=== PATIENT | female | born 1940 | race Caucasian/White ===

== ENCOUNTER → 2017-05-20 | Outpatient (CLI) | payer MEDICARE, BC | LOC: BICRAD 13:40 | PROVIDERS: ATTEND Internal Medicine | DX: R06.09 Other forms of dyspnea (principal) | CPT/HCPCS: 71046 ==

== ENCOUNTER 2017-10-14 12:08 | Outpatient (CLI) | payer MEDICARE, BC ==
--- NOTE | 2017-10-14 14:09 | RAD ---
THORACIC SPINE 2 VIWS STANDARD: HISTORY: Lumbar post laminectomy syndrome. COMPARISON: None. FINDINGS: Dorsal column stimulator is in place. Mild spondylitic changes of the thoracic spine. No acute frac ture or malalignment. Heart size is normal. Dual-lead pacer is present. IMPRESSION: Moderate degenerative changes of the thoracic spine. POS: LESLIE
== END 2017-10-14 12:09 | disposition home or self-care (01) ==
LOC: RAD 12:08
PROVIDERS: ATTEND Nurse Practitioner Family
DX: M96.1 Postlaminectomy syndrome, not elsewhere classified (principal); M47.894 Other spondylosis, thoracic region
CPT/HCPCS: 72072

== ENCOUNTER 2018-02-07 14:35 | Outpatient (CLI) | payer MEDICARE, BC ==
--- NOTE | 2018-02-07 16:43 | BD ---
BONE DENSITOMETRY USING DEXA: Date: 02/07/18 HISTORY: Postmenopausal screening for osteoporosis. FINDINGS: RIGHT HIP: Femoral Neck: 0.751 T-Score: -0.9 Z-Score: 1.4 Total Femur: 0.906 T-Score: -0.3 Z-Score: 1.7 LEFT HIP: Femoral Neck: 0.731 T-Score: -1.1 Z-Score: 1.2 Total Femur: 0.869 T-Score: -0.6 Z-Score: 1.4 There has been interval improvement of 7.4% in the bone mineral density of the right proximal femur a nd an improvement of 6.2% in the bone mineral density of the left proximal femur since 12/27/15. The 10 year fracture risk for a major osteoporotic fracture is 28% and for a hip fracture is 13%. IMPRESSION: Osteopenia. POS: LESLIE
== END 2018-02-07 14:36 | disposition home or self-care (01) ==
LOC: BICMAMMO 14:35
DX: Z12.31 Encounter for screening mammogram for malignant neoplasm of breast (principal); Z13.820 Encounter for screening for osteoporosis; Z78.0 Asymptomatic menopausal state; M85.89 Other specified disorders of bone density and structure, multiple sites; Z80.3 Family history of malignant neoplasm of breast
CPT/HCPCS: 77063; 77067; 77080

== ENCOUNTER 2018-08-08 06:50 | Outpatient (CLI) | payer MEDICARE, BC ==
[2018-08-07 16:00] VITALS: BMI 22.6
--- NOTE | 2018-08-08 09:19 | RAD ---
FMyelogram lumbar: 08/08/2018 HISTORY: 78-year-old female with low back pain, bilateral lumbar radiculopathy, and "neurogenic claudication" TECHNIQUE: Signed informed consent obtained. Patient placed prone on fluoroscopy table. L5-S1 level selected. Ov erlying skin prepared and draped in usual sterile fashion. 25-gauge needle used to prior buffered lid ocaine. 22-gauge spinal needle advanced and incrementally under brief, intermittent fluoroscopy. Upon return of clear CSF, a total of 10 mL of Isovue-M 200 was injected intrathecally. Needle was removed . Patient tolerated the procedure well. No complications. Patient was taken to CT. IMPRESSION: Successful lumbar myelogram. See separate report of CT lumbar myelogram
--- NOTE | 2018-08-08 09:45 | RAD ---
LUMBAR SPINE SERIES 3 VIEWS WITH FLEXION AND EXTENSION: Date: 08/08/18 HISTORY: Spinal stenosis with neurogenic claudication. FINDINGS: Bilateral pedicle screws at seen at L3, L4, and L5. Also, I-bar placement across SI joints is noted o n this lateral view. Markers of a disc implant are within the confines of the disc level at L4-5. The re is a spondylolisthesis of L4 on L5, 7-8 mm, which does not definitely change on flexion, but seems to slightly reduce in extension. IMPRESSION: Postoperative changes of the spine. Spondylolisthesis appears to reduce slightly in extension at the L4-5 level. POS: LESLIE
--- NOTE | 2018-08-08 10:25 | CT ---
FCT lumbar spine with contrast (CT lumbar myelogram) 08/08/2018 HISTORY: 78-year-old female with lumbar spinal stenosis and neurogenic claudication. COMPARISON: Noncontrast CT of 06/12/[address] lumbar myelogram of 05/04/2015. FINDINGS: There are 5 lumbar type vertebrae. Vertebral body heights are maintained. Conus medullaris terminates at L2. There is no significant central spinal canal stenosis at any level. There is mild left neural foraminal stenosis at L3-4 and L4-5 and mild right neural foraminal stenosis at L4-5. There is no hi gh-grade neural foraminal stenosis at any level. The cauda equina has a fairly symmetrical distributi on throughout the thecal sac. At T11-12, there is moderate to severe disc space narrowing with endplate sclerosis and mild vacuum d isc phenomenon. At L4-5 there is a grade 1 anterolisthesis of L4 on L5. Metallic markers for interbody graft at L4-5 with moderate disc space narrowing. Ankylosis of bilateral L4-5 facet joints. Moderate bilateral facet DJD at L5-S1 with vacuum joint phenomenon, right greater than left. The rest of the disc spaces are maintained. Bilateral pedicle screws at L3, L4, and L5, with no evidence of hardware loosening or malpositioning. iFuse screws across the bilateral SI joints. Moderate degenerative changes of bilateral SI joints. Dorsal column spinal cord stimulator enters the spinal canal at approximately T11-12, and ascends the posterior epidural space. There has been no major interval change. IMPRESSION: 1. Posterior lumbar interbody fusion treatment of grade 1 spondylolisthesis at L4-5. 2. Bilateral pedicle screws at L3, L4, and L5. 3. Status post arthrodesis of bilateral sacroiliac joints with screws. 4. Spinal cord dorsal column stimulator. 5. 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 No significant central spinal canal stenosis, significant neural foraminal stenosis, or nerve root compression, identified at any level. 7. No interval change since 06/12/2016 and 05/04/2015.
[2018-08-08] MEDS ORDERED: Iopamidol-M 200 41% 20 ML VIAL ONE (15:13)
== END 2018-08-08 09:35 | disposition home or self-care (01) ==
LOC: RAD 06:50 → EDSTATUS 08:00 → RAD 09:35
PROVIDERS: ATTEND Anesthesiology Pain Medicine
DX: M48.062 Spinal stenosis, lumbar region with neurogenic claudication (principal); M47.817 Spondylosis without myelopathy or radiculopathy, lumbosacral region; M43.16 Spondylolisthesis, lumbar region; Z98.1 Arthrodesis status
CPT/HCPCS: 62304; 72100; 72132; Q9966

== ENCOUNTER 2019-03-03 15:02 | Outpatient (CLI) | payer MEDICARE, BC ==
--- NOTE | 2019-03-03 16:12 | MMO ---
Bilateral MAMMO Bilat Screen [facility]. CLINICAL HISTORY: Patient is 78 years old and is seen for screening. The patient has the following family history of breast cancer: maternal aunt, at age 58, malignant (generic); mother, at age 85, malignant (generic); maternal aunt, at age 60, malignant (generic); maternal aunt, at age 70, malignant (generic) and paternal grandmother, at age 80, malignant (generic). The patient has no personal history of cancer. The patient has a history of right needle biopsy in 2014 - benign and left Excisional Biopsy in 1999 - benign. VIEWS: The views performed were: bilateral craniocaudal with tomosynthesis and bilateral mediolateral oblique with tomosynthesis. FILMS COMPARED: The present examination has been compared to prior imaging studies performed at [facility] on 11/29/2014, 12/27/2015, 02/06/2017 and 02/07/2018. This study has been interpreted with the assistance of computer-aided detection. MAMMOGRAM FINDINGS: There are scattered fibroglandular densities. There is a stable round mass seen in the right breast. There are no suspicious masses, calcifications or areas of architectural distortion. There are no suspicious masses, suspicious calcifications, or new areas of architectural distortion. IMPRESSION: THERE IS NO MAMMOGRAPHIC EVIDENCE OF MALIGNANCY. A ROUTINE FOLLOW-UP MAMMOGRAM IN 1 YEAR IS RECOMMENDED. THE RESULTS OF THIS EXAM WERE SENT TO THE PATIENT. ACR BI-RADS Category 2 - Benign finding MAMMOGRAPHY NOTE: 1. A negative mammogram report should not delay a biopsy if a dominant of clinically suspicious mass is present. 2. Approximately 10% to 15% of breast cancers are not detected by mammography. 3. Adenosis and dense breasts may obscure an underlying neoplasm. Reported by: EMILY ROSS MD Electonically Signed: [id number]
--- NOTE | 2019-03-03 16:50 | BD ---
DEXA BONE DENSITY: HISTORY: An 78-year-old female. Postmenopausal. Screening study. FINDINGS: BMD (g/cm2) T-SCORE Z-SCORE RIGHT FEMORAL NECK 0.740 -1.0 1.3 TOTAL 0.917 -0.2 1.9 LEFT FEMORAL NECK 0.696 -1.4 1.0 TOTAL 0.872 -0.6 IMPRESSION: 1. Right femoral neck WHO classification normal. Ten year fracture risk for major osteoporotic fractu re is 17% and hip fracture is 3.1%. 2. Left hip WHO classification osteopenia. Ten year fracture risk for major osteoporotic fracture 19% and hip fracture 4.2%. POS: OFF
== END 2019-03-03 15:03 | disposition home or self-care (01) ==
LOC: BICMAMMO 15:02
PROVIDERS: ATTEND Obstetrics & Gynecology
DX: Z12.31 Encounter for screening mammogram for malignant neoplasm of breast (principal); Z78.0 Asymptomatic menopausal state; M85.88 Other specified disorders of bone density and structure, other site
CPT/HCPCS: 77063; 77067; 77080

== ENCOUNTER 2019-06-16 05:31 | Day surgery (SDC) | payer MEDICARE, BC ==
[2019-06-15 14:37] VITALS: BMI 22.8
[2019-06-16] MEDS ORDERED: EPINEPHrine 0.3 MG in Ophthalmic Irrigation Solution 500 ML IRR SCH (06:00)
[2019-06-16] MEDS ORDERED: Phenylephrine 2.5% Ophth Soln 5 ML BOT ONE (06:02)
[2019-06-16] MEDS ORDERED: Cyclopentolate 1% Opth Drop 2 ML BOT ONE (06:02)
[2019-06-16] MEDS ORDERED: PROPOFOL 20 ML ONE (06:27)
[2019-06-16] MEDS ORDERED: Midazolam HCl 2 mg/2 ml Vial ONE (06:52)
[2019-06-16] MEDS ORDERED: Fentanyl 100 MCG/2 ML VIAL ONE (06:52)
--- NOTE | 2019-06-16 08:32 | OP ---
DATE OF PROCEDURE: 06/16/2019 PRINCIPAL PREOPERATIVE DIAGNOSES: 1. Epiretinal membrane, left eye. 2. Vitreous opacities, left eye. POSTOPERATIVE DIAGNOSES: 1. Epiretinal membrane, left eye. 2. Vitreous opacities, left eye. NAME OF PROCEDURE PERFORMED: 1. 25-gauge pars plana vitrectomy, left eye. 2. Epiretinal membrane/internal limiting membrane removal, left eye. ESTIMATED BLOOD LOSS: None. SPECIMENS REMOVED: None. COMPLICATIONS: None. ANESTHESIA: MAC with retrobulbar block. SUMMARY OF THE OPERATION: The patient was identified in the preoperative holding area, where the correct eye being the left eye was marked for surgery. The patient was taken to the operating room, where MAC anesthesia was induced. A retrobulbar block was administered to the left eye. The block consisted of 1:1 ratio of 4% lidocaine and 0.75% Marcaine. A total of 5 mL was administered. The left eye was then prepped and draped in the usual sterile ophthalmic fashion for surgery. A wire-clip lid speculum placed. A standard 25-gauge pars plana vitrectomy platform was fashioned with trocars placed approximately 3.5 mm from the limbus. The infusion was noted to be within the vitreous cavity prior to being turned on to an infusion pressure of 30 mmHg. The light pipe and microvitrector were introduced in the eye under visualization of the BIOM viewing system. A significant amount of vitreous opacities identified. A careful core vitrectomy was performed followed by peripheral shave vitrectomy. Following completion of careful vitrectomy, the ICG dye was used to stain the internal limiting membrane. Using the Jose Manuel ILM forceps, the epiretinal membrane/internal limiting membrane complex removal was performed in a circumferential fashion about the fovea. The peel extended approximately 2 disk diameters in radius circumferentially. Following completion of peeling, the microvitrector was reintroduced in the eye to remove any residual vitreous debris. A 360-degree superior scleral depressed exam of the periphery revealed no defects. The cannulas were sequentially removed and all sclerotomies were noted to be watertight. Subconjunctival Ancef and Kenalog were injected. The wire-clip lid speculum was removed followed by application of Tobradex ophthalmic ointment and a light patch and shield. The patient tolerated the procedure well and was taken to the outpatient recovery area in good condition. Job ID: [id number]
[2019-06-16] MEDS ORDERED: Bupivacaine PF 0.75% SDV 10 ML ONE (12:58)
[2019-06-16] MEDS ORDERED: Lidocaine 4% PF 5 ML AMP ONE (12:58)
[2019-06-16] MEDS ORDERED: Maxitrol 0.1% Opth Oint 3.5 GM TUBE ONE (12:58)
[2019-06-16] MEDS ORDERED: Lidocaine 1% PF 5 ML VIAL ONE (12:58)
[2019-06-16] MEDS ORDERED: Triamcinolone 40 MG/ML VIAL ONE (12:58)
[2019-06-16] MEDS ORDERED: CEFAZOLIN 1 GM VIAL ONE (12:58)
[2019-06-16] MEDS ORDERED: Indocyanine Green 25 MG/10 ML VIAL ONE (12:58)
== END 2019-06-16 08:41 | disposition home or self-care (01) ==
LOC: SDC 05:31
PROVIDERS: ATTEND Ophthalmology Retina Specialist
PROC: 08T53ZZ Resection of Left Vitreous, Percutaneous Approach (ICD-10-PCS; principal; 2019-06-16)
PROC: 08NF3ZZ Release Left Retina, Percutaneous Approach (ICD-10-PCS; 2019-06-16)
DX: H35.372 Puckering of macula, left eye (principal); H43.392 Other vitreous opacities, left eye; Z79.82 Long term (current) use of aspirin; Z79.899 Other long term (current) drug therapy; Z91.040 Latex allergy status
CPT/HCPCS: J0171; J0690; J2001; J2250; J2704; J3010; J3301; J3490

== ENCOUNTER 2020-08-29 13:54 | Outpatient (CLI) | payer MEDICARE, BC | END 2020-08-29 13:55 | disposition home or self-care (01) | LOC: BICMAMMO 13:54 | PROVIDERS: ATTEND Internal Medicine | DX: Z12.31 Encounter for screening mammogram for malignant neoplasm of breast (principal); Z80.3 Family history of malignant neoplasm of breast; Z91.89 Other specified personal risk factors, not elsewhere classified | CPT/HCPCS: 77063; 77067 ==

== ENCOUNTER 2020-12-01 10:47 | Inpatient (IN) | payer MEDICARE, BC ==
[~2020-12-01 10:47] MED LIST: Iopamidol-370 76% 500 ML 1 ML ONE
[2020-12-01 11:34] LABS: Hemoglobin 13.2 g/dL (12.0-16.0); Mean Corpuscular HGB CONC 33.4 g/dL (32.0-36.0); Mean Corpuscular Hemoglobin 32.4 pg (27.0-31.0); Mean Platelet Volume 8.8 fL (7.4-10.4); Platelet Count 330 thou/uL (130-400); RBC Distribution Width 12.7 % (11.5-14.5); Red Blood Cell (RBC) Count 4.08 mill/uL (4.20-5.40); White Blood Cell (WBC) Count 30.3 thou/uL (4.8-10.8)
[2020-12-01 11:53] LABS: ALT (SGPT) 30 U/L (8-55); AST (SGOT) 43 U/L (5-34); Albumin 3.3 g/dL (3.4-4.8); Alkaline Phosphatase 158 U/L (40-110); Anion Gap 13 mmol/L (10-20); BUN (Urea Nitrogen) 15 mg/dL (9.8-20.1); Bilirubin, Total 0.4 mg/dL (0.2-1.2); Calc. Creatinine Clearance 0 mL/min (70-130); Calcium 8.7 mg/dL (7.8-10.44); Carbon Dioxide 28 mmol/L (23-31); Chloride 102 mmol/L (98-107); Glucose 83 mg/dL (83-110); Potassium 3.5 mmol/L (3.5-5.1); Protein, Total 6.3 g/dL (5.8-8.1); Sodium 139 mmol/L (136-145)
[2020-12-01 12:01] LABS: Band 1 % (5-11); Eosinophils 80 % (0-10); Lymphocytes 8 % (21-51); MDiff Complete? YES; Monocytes 1 % (0-10); Neutrophil 7 % (42-75); Platelet Morphology Comment Appears Adequate; RBC Morphology Normal; Reactive Lymphocytes 1 % (0-10)
[2020-12-01] MEDS ORDERED: Cefepime 2 GM VIAL ONE (12:33)
[2020-12-01 14:23] LABS: Bacteria/HPF None Seen HPF (None Seen); Bilirubin Negative (Negative); Blood, Urine Trace (Negative); Clarity Clear (Clear); Glucose, Urine (Dipstick) Normal (Negative); Ketone, Urine Negative (Negative); Leukocyte Negative Leu/uL (Negative); Nitrite Negative (Negative); Protein, Urine (Dipstick) Negative (Neg-Trace); RBC/HPF 0-3 HPF (0-3); Specific Gravity, Urine 1.027 (1.002-1.036); Urobilinogen Normal mg/dL (Less than 2); WBC/HPF 0-3 HPF (0-3)
[2020-12-01] MEDS ORDERED: Senokot S 8.6-50 MG TAB PO PRN (15:23)
[2020-12-01] MEDS ORDERED: Cepastat Lozenges 1 LOZ PO PRN (15:23)
[2020-12-01] MEDS ORDERED: Ondansetron ODT 4 MG TAB PO PRN (15:23)
[2020-12-01] MEDS ORDERED: Benzonatate 100 MG CAP PO PRN (15:23)
[2020-12-01] MEDS ORDERED: Guaifenesin DM 100-10/5 ML UDCUP PO PRN (15:23)
[2020-12-01] MEDS ORDERED: Loratadine 10 MG TAB PO PRN (15:23)
[2020-12-01] MEDS ORDERED: Hydrocerin (Eucerin) Cream 120 gm Jar TOP PRN (15:23)
[2020-12-01] MEDS ORDERED: Artificial Tear Sol 15 ML BOT EA EYE PRN (15:23)
[2020-12-01] MEDS ORDERED: Loperamide HCl 2 MG CAP PO PRN (15:23)
[2020-12-01] MEDS ORDERED: Zolpidem Tartrate 5 MG TAB PO PRN (15:23)
[2020-12-01] MEDS ORDERED: Calcium Carbonate 500 MG ChewTAB PO PRN (15:23)
[2020-12-01] MEDS ORDERED: Ondansetron PF 4 MG/2 ML Vial IVP PRN (15:23)
[2020-12-01] MEDS ORDERED: Bisacodyl 10 MG SUPP PR PRN (15:23)
[2020-12-01] MEDS ORDERED: Sodium Chloride 0.65% Nasal 44 ML BOT EA NARE PRN (15:23)
[2020-12-01] MEDS ORDERED: hydrALAZINE 20 MG/ML VIAL SLOW IVP PRN (15:23)
[2020-12-01] MEDS ORDERED: Acetaminophen 325 MG TAB PO PRN (15:23)
[2020-12-01] MEDS ORDERED: Vancomycin 1 GM/200 ML BAG ONE (15:26)
[2020-12-01] MEDS: HYDROcodone/Acetaminophen 5/325 mg Tablet PO PRN (16:48)
[2020-12-01 17:38] VITALS: BMI 22.3
[2020-12-01] MEDS ORDERED: traMADol HCl 50 MG TAB PO PRN (19:36)
[2020-12-01] MEDS: CEFEPIME HCL IN DEXTROSE 5 % 1 GM in Premix Bag 1 BAG IVPB SCH (20:08)
[2020-12-01 21:00] LABS: Legionella Urinary Ag Negative (Negative); Strep pneumo Urine Ag NEGATIVE (NEGATIVE)
[2020-12-02] MEDS: Furosemide 20 MG/2 ML VIAL SLOW IVP SCH ×2 (05:36→15:20)
[2020-12-02] MEDS: HYDROcodone/Acetaminophen 5/325 mg Tablet PO PRN ×2 (05:36→20:42)
[2020-12-02 05:52] LABS: Hemoglobin 12.9 g/dL (12.0-16.0); Mean Corpuscular HGB CONC 33.4 g/dL (32.0-36.0); Mean Corpuscular Hemoglobin 32.3 pg (27.0-31.0); Mean Corpuscular Volume 96.7 fL (78.0-98.0); Mean Platelet Volume 8.6 fL (7.4-10.4); Platelet Count 335 thou/uL (130-400); RBC Distribution Width 12.6 % (11.5-14.5); White Blood Cell (WBC) Count 31.4 thou/uL (4.8-10.8)
[2020-12-02 06:07] LABS: ALT (SGPT) 26 U/L (8-55); AST (SGOT) 30 U/L (5-34); Alkaline Phosphatase 153 U/L (40-110); Anion Gap 11 mmol/L (10-20); BUN (Urea Nitrogen) 12 mg/dL (9.8-20.1); Bilirubin, Total 0.4 mg/dL (0.2-1.2); Calc. Creatinine Clearance 37 mL/min (70-130); Calcium 8.7 mg/dL (7.8-10.44); Carbon Dioxide 29 mmol/L (23-31); Chloride 103 mmol/L (98-107); Globulin 2.7 g/dL (2.4-3.5); Glucose 82 mg/dL (83-110); Magnesium 1.4 mg/dL (1.6-2.6); Phosphorus 2.9 mg/dL (2.3-4.7); Potassium 3.6 mmol/L (3.5-5.1); Protein, Total 5.7 g/dL (5.8-8.1); Sodium 139 mmol/L (136-145)
[2020-12-02 08:22] LABS: Band 4 % (5-11); Eosinophils 81 % (0-10); Lymphocytes 9 % (21-51); MDiff Complete? YES; Monocytes 1 % (0-10); Neutrophil 5 % (42-75); Platelet Morphology Comment Appears Adequate; Polychromasia SLIGHT = 2-3 cells (100X) (0-2/hpf)
[2020-12-02] MEDS ORDERED: Magnesium Sulfate 2 GM in Sodium Chloride 0.9% 100 ML IVPB SCH (08:30)
[2020-12-02] MEDS ORDERED: Magnesium 2 GM/50 ML 2 GM in Premix Bag 1 BAG IVPB SCH (08:30)
[2020-12-02] MEDS: CEFEPIME HCL IN DEXTROSE 5 % 1 GM in Premix Bag 1 BAG IVPB SCH ×2 (09:37→20:01)
[2020-12-02] MEDS: Saccharomyces boulardii 250 MG CAP PO SCH (09:38)
[2020-12-02] MEDS: Atorvastatin Calcium 40 MG TAB PO SCH (09:38)
[2020-12-02] MEDS: Enoxaparin Sodium 40 MG/0.4 ML SYRINGE SC SCH (09:38)
[2020-12-02] MEDS: Aspirin 81 mg Enteric Coated Tablet PO SCH (09:38)
[2020-12-02] MEDS: Fluticasone Propionate Nasal Spray 16 gm Bottle NASAL SCH (15:20)
[2020-12-02] MEDS ORDERED: Vancomycin 1 GM in Premix Bag 1 BAG IVPB SCH (16:00)
[2020-12-03] MEDS: Furosemide 20 MG/2 ML VIAL SLOW IVP SCH (05:32)
[2020-12-03 06:16] LABS: Mean Corpuscular HGB CONC 34.4 g/dL (32.0-36.0); Mean Corpuscular Hemoglobin 33.1 pg (27.0-31.0); Mean Corpuscular Volume 96.3 fL (78.0-98.0); Mean Platelet Volume 8.8 fL (7.4-10.4); Platelet Count 313 thou/uL (130-400); RBC Distribution Width 12.8 % (11.5-14.5); Red Blood Cell (RBC) Count 3.93 mill/uL (4.20-5.40); White Blood Cell (WBC) Count 35.9 thou/uL (4.8-10.8)
[2020-12-03 06:28] LABS: ALT (SGPT) 31 U/L (8-55); AST (SGOT) 35 U/L (5-34); Albumin 3.3 g/dL (3.4-4.8); Alkaline Phosphatase 164 U/L (40-110); Anion Gap 11 mmol/L (10-20); BUN (Urea Nitrogen) 13 mg/dL (9.8-20.1); Bilirubin, Total 0.3 mg/dL (0.2-1.2); Calc. Creatinine Clearance 40 mL/min (70-130); Calcium 8.9 mg/dL (7.8-10.44); Carbon Dioxide 31 mmol/L (23-31); Chloride 98 mmol/L (98-107); Globulin 2.9 g/dL (2.4-3.5); Glucose 89 mg/dL (83-110); Protein, Total 6.2 g/dL (5.8-8.1); Sodium 137 mmol/L (136-145)
[2020-12-03 07:01] LABS: Eosinophils 80 % (0-10); Lymphocytes 13 % (21-51); MDiff Complete? YES; Monocytes 1 % (0-10); Neutrophil 6 % (42-75)
[2020-12-03] MEDS ORDERED: Potassium Chloride 20 MEQ TAB PO SCH (07:45)
[2020-12-03] MEDS ORDERED: Allopurinol 100 MG TAB PO SCH (09:00)
[2020-12-03] MEDS ORDERED: Non-Formulary Item 1 EACH (Colchicine [Colchicine] 0.6 MG Capsule) PO SCH (09:00)
[2020-12-03] MEDS ORDERED: Colchicine 0.6 MG TAB PO SCH (09:00)
[2020-12-03] MEDS: Aspirin 81 mg Enteric Coated Tablet PO SCH (10:09)
[2020-12-03] MEDS: Saccharomyces boulardii 250 MG CAP PO SCH (10:09)
[2020-12-03] MEDS: Atorvastatin Calcium 40 MG TAB PO SCH (10:09)
[2020-12-03] MEDS: Enoxaparin Sodium 40 MG/0.4 ML SYRINGE SC SCH (10:10)
[2020-12-03] MEDS: Fluticasone Propionate Nasal Spray 16 gm Bottle NASAL SCH (10:10)
[2020-12-03 12:01] VITALS: BP 104/67; TEMP 97.4
== END 2020-12-03 13:11 | disposition home or self-care (01) | DRG 292 ==
LOC: ERS 10:47 → SURG A 14:32
PROVIDERS: ADMIT Internal Medicine; ATTEND Internal Medicine
DX: I11.0 Hypertensive heart disease with heart failure (principal); J98.11 Atelectasis; J91.8 Pleural effusion in other conditions classified elsewhere; I50.32 Chronic diastolic (congestive) heart failure; E78.5 Hyperlipidemia, unspecified; E78.00 Pure hypercholesterolemia, unspecified; R74.01 Elevation of levels of liver transaminase levels; I25.10 Atherosclerotic heart disease of native coronary artery without angina pectoris; I48.91 Unspecified atrial fibrillation; E83.42 Hypomagnesemia; D72.10 Eosinophilia, unspecified; Z95.0 Presence of cardiac pacemaker; Z90.49 Acquired absence of other specified parts of digestive tract; Z90.710 Acquired absence of both cervix and uterus; Z96.82 Presence of neurostimulator; Z91.040 Latex allergy status; Z79.82 Long term (current) use of aspirin; Z79.52 Long term (current) use of systemic steroids; Z79.899 Other long term (current) drug therapy
CPT/HCPCS: 36415; 71045; 71275; 80053; 80061; 81003; 81015; 82274; 82306; 82785; 83605; 83735; 83880; 84100; 84439; 84443; 84484; 84550; 85025; 85060; 85652; 86140; 87040; 87449; 87899; 88184; 88185; 93005; 96365; 96366; 96367; 96375; J0692; J1650; J1940; J1956; J3370; J3475; Q9967

== ENCOUNTER 2022-04-13 05:47 | Day surgery (SDC) | payer MEDICARE, BC ==
[2022-04-12 11:21] VITALS: BMI 22.3
[2022-04-13 06:55] LABS: #Basophils 0.1 thou/uL (0.0-0.2); #Eosinphils 0.6 thou/uL (0.0-0.7); #Lymphocytes 2.1 thou/uL (1.20-3.40); #Monocytes 0.7 thou/uL (0.11-0.59); #Neutrophils 3.4 thou/uL (1.40-6.50); %Basophils 1.3 % (0.0-1.0); %Eosinophils 8.6 % (0.0-10.0); %Lymphocytes 30.9 % (21.0-51.0); %Monocytes 9.7 % (0.0-10.0); %Neutrophils 49.5 % (42.0-75.0); Hemoglobin 14.4 g/dL (12.0-16.0); Mean Corpuscular HGB CONC 32.6 g/dL (32.0-36.0); Mean Corpuscular Hemoglobin 31.5 pg (27.0-31.0); Mean Corpuscular Volume 96.7 fl (78.0-98.0); Mean Platelet Volume 10.4 fL (7.4-10.4); Platelet Count 126 10x3/uL (130-400); RBC Distribution Width 12.8 % (11.5-14.5); Red Blood Cell (RBC) Count 4.56 mill/uL (4.20-5.40); White Blood Cell (WBC) Count 6.9 10x3/uL (4.8-10.8)
[2022-04-13] MEDS ORDERED: PHENYLEPHRINE-NS 100 MCG/ML 10 ML SYRINGE ONE (07:14)
[2022-04-13] MEDS ORDERED: Propofol 500 MG/50 ML VIAL ONE (07:14)
[2022-04-13] MEDS ORDERED: fentaNYL PF 100 MCG/2 ML SYRINGE ONE (07:14)
[2022-04-13] MEDS ORDERED: Midazolam HCl 2 mg/2 ml Vial ONE (07:14)
[2022-04-13] MEDS ORDERED: Lidocaine 1% PF 5 ML VIAL ONE (07:15)
[2022-04-13 07:18] LABS: Anion Gap 11 mmol/L (10-20); BUN (Urea Nitrogen) 16 mg/dL (9.8-20.1); Calc. Creatinine Clearance 53 mL/min (70-130); Carbon Dioxide 26 mmol/L (23-31); Chloride 107 mmol/L (98-107); Estimated GFR 79; Glucose 85 mg/dL (83-110); Sodium 140 mmol/L (136-145)
[2022-04-13] MEDS ORDERED: Lidocaine 2% PF 5 ML VIAL ONE (07:20)
[2022-04-13] MEDS ORDERED: Bupivacaine HCl 0.5%/Epinephrine 1:200,000/PF 30 ml Vial ONE (07:20)
[2022-04-13] MEDS ORDERED: CEFAZOLIN 1 GM VIAL ONE (07:33)
[2022-04-13] MEDS ORDERED: Sodium Chloride 0.9% 100 ML ONE (07:33)
[2022-04-13] MEDS ORDERED: PROPOFOL 200 MG/20 ML VIAL ONE (07:46)
== END 2022-04-13 10:03 | disposition home or self-care (01) ==
LOC: SDC 05:47
PROVIDERS: ATTEND Anesthesiology Pain Medicine
PROC: 0JPT0MZ Removal of Stimulator Generator from Trunk Subcutaneous Tissue and Fascia, Open Approach (ICD-10-PCS; principal; 2022-04-13)
PROC: 0JH70DZ Insertion of Multiple Array Stimulator Generator into Back Subcutaneous Tissue and Fascia, Open Approach (ICD-10-PCS; 2022-04-13)
DX: M96.1 Postlaminectomy syndrome, not elsewhere classified (principal); T85.193A Other mechanical complication of implanted electronic neurostimulator, generator, initial encounter; G89.4 Chronic pain syndrome; M47.26 Other spondylosis with radiculopathy, lumbar region; M46.1 Sacroiliitis, not elsewhere classified; M47.27 Other spondylosis with radiculopathy, lumbosacral region; I10 Essential (primary) hypertension; E03.9 Hypothyroidism, unspecified; M10.9 Gout, unspecified; Z79.82 Long term (current) use of aspirin; Z79.899 Other long term (current) drug therapy; Z88.8 Allergy status to other drugs, medicaments and biological substances; Z91.040 Latex allergy status; Z91.048 Other nonmedicinal substance allergy status; Z95.0 Presence of cardiac pacemaker
CPT/HCPCS: 63685; 80048; 85025; C1787; C1820; C1883; L8689; J0690; J2001; J2250; J2704; J3490

== ENCOUNTER 2022-05-16 13:46 | Outpatient (CLI) | payer MEDICARE, BC | END 2022-05-16 13:47 | disposition home or self-care (01) | LOC: RAD 13:46 | PROVIDERS: ATTEND Anesthesiology Pain Medicine | DX: S72.001A Fracture of unspecified part of neck of right femur, initial encounter for closed fracture (principal) ==